=== PATIENT | female | born 1970 | race Caucasian/White ===

== ENCOUNTER 2017-02-15 09:01 | Emergency (ER) | payer MEDICAID ==
[~2017-02-15] VITALS: Ht 170.2 cm; Wt 57.7 kg
[~2017-02-15 09:01] MED LIST: OMEP-110 PO
[2017-02-15 09:59] VITALS: BP 109/67
[2017-02-15] MEDS ORDERED: SODIUM CHLORIDE FLUSH 10ML SYR IVF ONE (10:00)
[2017-02-15] MEDS ORDERED: SODIUM CHLORIDE 0.9% 1,000ML IVBOLUS ONE (10:00)
[2017-02-15 10:11] LABS: HEMATOCRIT 41.4 % (34.6-47.8); HEMOGLOBIN 14.1 g/dL (11.7-16.4); WHITE BLOOD COUNT 7.4 x10^3/uL (3.4-10)
[2017-02-15 10:18] LABS: BLOOD UREA NITROGEN 8 mg/dL (7-18)
[2017-02-15] MEDS ORDERED: OMNIPAQUE 350 MG/ML, 150 ML BOTTLE ONE (10:58)
[2017-02-15] MEDS ORDERED: DEXAMETHASONE 4 MG/ML, 1ML PO ONE (12:00)
[2017-02-15] MEDS ORDERED: DEXAMETHASONE 4 MG/ML, 5ML ONE (12:03)
== END 2017-02-15 12:27 | disposition home or self-care (01) ==
LOC: ED 09:52
DX: J02.9 Acute pharyngitis, unspecified (principal); R13.13 Dysphagia, pharyngeal phase; J44.9 Chronic obstructive pulmonary disease, unspecified
CPT/HCPCS: 36415; 70491; 71275; 80048; 82040; 85025; 96360; 96361; 99285; J1100; J7030; Q9967

== ENCOUNTER → 2020-12-13 | Outpatient (CLI) | payer MEDICAID, OTHER | END | disposition home or self-care (01) | LOC: CARD 10:17 | PROVIDERS: ATTEND Nurse Practitioner Family | DX: R29.898 Other symptoms and signs involving the musculoskeletal system (principal) | CPT/HCPCS: 95886; 95909 ==